=== PATIENT | female | born 1995 | race Caucasian/White ===

== ENCOUNTER 2020-04-29 10:04 | Emergency (ER) | payer OTHER, MEDICAID, SELFPAY ==
[2020-04-29 10:06] VITALS: BP 96/72; PULSE 68; RESP 16; TEMP 36.4; O2SAT 100; BMI 18.0
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
== END 2020-04-29 12:02 | disposition home or self-care (01) ==
PROVIDERS: Emergency Provider Emergency Medicine
DX: S01.81XA Laceration without foreign body of other part of head, initial encounter (principal); V86.95XA Unspecified occupant of 3- or 4- wheeled all-terrain vehicle (ATV) injured in nontraffic accident, initial encounter; Y93.89 Activity, other specified; Y92.9 Unspecified place or not applicable; Y99.9 Unspecified external cause status; M54.2 Cervicalgia; G40.909 Epilepsy, unspecified, not intractable, without status epilepticus; Z79.899 Other long term (current) drug therapy; Z72.0 Tobacco use
CPT/HCPCS: 12011; 70450; 72040; 99281; 99283